=== PATIENT | female | born 1950 | race Caucasian/White ===

== ENCOUNTER 2017-02-27 18:17 | Observation (INO) | payer OTHER, MEDICAID ==
[2017-02-27] MEDS ORDERED: fentaNYL 100 MCG/2 ML INJ IVP ONE (18:45)
[2017-02-27] MEDS ORDERED: NS 1,000 ML IV ONE ×2 (18:45)
[2017-02-27] MEDS ORDERED: ONDANSETRON 4 MG/2 ML VIAL IVP ONE (18:45)
--- NOTE | 2017-02-27 18:47 | EDPHY ---
H & P Time Seen by Provider: 02/27/17 18:32 HPI/ROS: CHIEF COMPLAINT: Abdominal pain HISTORY OF PRESENT ILLNESS: Patient was diagnosed with gallstones when she had her appendectomy for 5 years ago. She has been in [place] and had salmonella on February 03 and has been struggling with diarrhea and 18 lb weight loss since then. She has been having intermittent upper abdominal pain for the last 6 weeks but over the last 24 hours became much worse. Kept her up all night. Today she has associated nausea and pain is worse with trying to eat or drink anything. Radiates to her back. Severe now. REVIEW OF SYSTEMS: Eye: no change in vision ENT: no sore throat Cardiac: no chest pain or syncope Pulmonary: no cough or SOB Abdomen: HPI, intermittent diarrhea since salmonella diagnosis a month ago. Musculoskeletal: no back pain Skin: no rash Neuro: no headache Constitutional: no fever : no urinary symptoms A comprehensive 10 point review of systems is otherwise negative aside from elements mentioned in the history of present illness. PAST MEDICAL HISTORY: Tonsillectomy, appendectomy, x3. Social history: Just returned from [place], nonsmoker no alcohol. General Appearance: Alert and conversant, cooperative. Eyes: No scleral icterus. ENT, Mouth: Dry mucous membranes Respiratory: Normal respiratory effort, breath sounds equal, lungs are clear to auscultation. Cardiovascular: Regular rate and rhythm. Gastrointestinal: Right upper quadrant abdominal tenderness. Neurological: Alert and oriented x3. Normally conversant. Face symmetric, normal movement and sensation in all extremities. Skin: Warm and dry, no rashes. Musculoskeletal: No peripheral edema and no joint swelling. Psychiatric: Not agitated. Emergency Department course/MDM: Fentanyl 100 mcg IV, Zofran 4 mg IV, normal saline 2 L for rehydration for dehydration. 1945: Ultrasound per Gil shows wall thickening, 1.8 cm stone in the gallbladder neck, enlarged common bile duct at 10 mm. Probable cholecystitis. 1950: Results reviewed with the patient, plan for IV Invanz, admission, surgical consultation. Smoking Status: Never smoked Constitutional: Initial Vital Signs Temperature (C) 36.6 C 02/27/17 18:25 Heart Rate 74 02/27/17 18:25 Respiratory Rate 16 02/27/17 18:25 Blood Pressure 159/100 H 02/27/17 18:25 O2 Sat (%) 96 02/27/17 18:25 O2 Delivery Mode Nasal Cannula O2 (L/minute) 2 Allergies/Adverse Reactions: codeine Allergy (Verified 10/04/13 19:38) Penicillins Allergy (Verified 10/04/13 19:38) Home Medications: Medication Instructions Recorded NK [No Known Home Meds] 10/04/13 Medical Decision Making - Diagnostics Imaging Results: Imaging Impressions Abdomen Ultrasound 02/27/17 18:46 Impression: 1. Cholelithiasis with gallbladder sludge and shadowing gallstones up to 1.8 cm , mild gallbladder wall thickening and dilated common bile duct up to 10 mm suggesting acute cholecystitis. 2. No hepatomegaly or ascites. Findings and recommendations discussed with Emergency Department physician, ART RIOS at 19:44 hour, 02/27/2017. Final report concurs with initial preliminary interpretation. Differential Diagnosis: Differential considered including but not limited to pancreatitis, common duct stone, biliary colic, cholecystitis, GERD. Consult/Admit Bed Type: [facility] - Data Points Laboratory Results: Laboratory Results 02/27/17 18:55 02/27/17 18:55 02/27/17 02/27/17 18:55 18:55 WBC 8.33 10^3/uL 10^3/uL (3.80-9.50) RBC 4.44 10^6/uL 10^6/uL (4.18-5.33) Hgb 12.9 g/dL g/dL (12.6-16.3) Hct 38.4 % % (38.0-47.0) MCV 86.5 fL fL (81.5-99.8) MCH 29.1 pg pg (27.9-34.1) MCHC 33.6 g/dL g/dL (32.4-36.7) RDW 13.0 % % (11.5-15.2) Plt Count 328 10^3/uL 10^3/uL (150-400) MPV 9.7 fL fL (8.7-11.7) Neut % (Auto) 43.3 % % (39.3-74.2) Lymph % (Auto) 45.6 % H % (15.0-45.0) Brown % (Auto) 9.4 % % (4.5-13.0) Eos % (Auto) 0.8 % % (0.6-7.6) Baso % (Auto) 0.7 % % (0.3-1.7) Nucleat RBC Rel Count 0.0 % % (0.0-0.2) Absolute Neuts (auto) 3.60 10^3/uL 10^3/uL (1.70-6.50) Absolute Lymphs (auto) 3.80 10^3/uL H 10^3/uL (1.00-3.00) Absolute Monos (auto) 0.78 10^3/uL 10^3/uL (0.30-0.80) Absolute Eos (auto) 0.07 10^3/uL 10^3/uL (0.03-0.40) Absolute Basos (auto) 0.06 10^3/uL 10^3/uL (0.02-0.10) Absolute Nucleated RBC 0.00 10^3/uL 10^3/uL (0-0.01) Immature Gran % 0.2 % % (0.0-1.1) Seg Neutrophils % 45 % % Lymphocytes % 45 % % Monocytes % 8 % % Eosinophils % 1 % % Basophils % 1 % % Immature Gran # 0.02 10^3/uL 10^3/uL (0.00-0.10) Absolute Seg Neuts 3.75 10^/uL 10^/uL (1.70-6.50) Absolute Lymphocytes 3.75 10^3/uL H 10^3/uL (1.00-3.00) Absolute Monocytes 0.67 10^3/uL 10^3/uL (0.30-0.80) Absolute Eosinophils 0.08 10^3/uL 10^3/uL (0.03-0.40) Absolute Basophils 0.08 10^3/uL 10^3/uL (0.02-0.10) RBC/WBC/PLT Morphology NORMAL (NORMAL) Atypical Lymphocytes 1+ H Platelet Estimate ADEQUATE (ADEQ) Sodium 140 mEq/L mEq/L (134-144) Potassium 3.5 mEq/L mEq/L (3.5-5.2) Chloride 106 mEq/L mEq/L (97-110) Carbon Dioxide 22 mEq/l mEq/l (22-31) Anion Gap 12 mEq/L mEq/L (8-16) BUN 8 mg/dL mg/dL (7-23) Creatinine 0.9 mg/dL mg/dL (0.6-1.0) Estimated GFR > 60 Glucose 106 mg/dL H mg/dL (70-100) Calcium 9.7 mg/dL mg/dL (8.5-10.4) Total Bilirubin 0.8 mg/dL mg/dL (0.1-1.4) Conjugated Bilirubin 0.6 mg/dL H mg/dL (0.0-0.5) Unconjugated Bilirubin 0.2 mg/dL mg/dL (0.0-1.1) AST 31 IU/L IU/L (14-46) ALT 30 IU/L IU/L (9-52) Alkaline Phosphatase 42 IU/L IU/L (38-126) Total Protein 6.8 g/dL g/dL (6.3-8.2) Albumin 4.1 g/dL g/dL (3.5-5.0) Lipase 278.0 IU/L IU/L (23-300) Medications Given: Discontinued Medications Fentanyl (Sublimaze) 100 mcg IVP EDNOW ONE Stop: 02/27/17 18:46 Last Admin: 02/27/17 19:07 Dose: 100 mcg Sodium Chloride (Ns) 1,000 mls @ 0 mls/hr IV ONCE ONE PRN Reason: Wide Open Stop: 02/27/17 18:46 Last Admin: 02/27/17 19:08 Dose: 1,000 mls Sodium Chloride (Ns) 1,000 mls @ 0 mls/hr IV ONCE ONE PRN Reason: Wide Open Stop: 02/27/17 18:46 Last Admin: 02/27/17 20:00 Dose: 1,000 mls Ertapenem 1 gm/ Sodium (Chloride) 100 mls @ 200 mls/hr IV EDNOW ONE PRN Reason: Protocol Stop: 02/27/17 20:23 Last Admin: 02/27/17 20:21 Dose: 100 mls Ondansetron HCl (Zofran) 4 mg IVP EDNOW ONE Stop: 02/27/17 18:46 Last Admin: 02/27/17 19:08 Dose: 4 mg Departure - Departure Disposition: [facility] Acute Clinical Impression: Acute cholecystitis Condition: Good
[2017-02-27 19:08] LABS: % IMMATURE GRANULYOCYTES 0.2 % (0.0-1.1); ABSOLUTE IMMATURE GRANULOCYTES 0.02 10^3/uL (0.00-0.10); ADD DIFF? NO; ADD MORPH? NO; ADD SCAN? YES; FRAGMENT RBC FLAG 0 (0-99); HEMATOCRIT 38.4 % (38.0-47.0); HEMOGLOBIN 12.9 g/dL (12.6-16.3); LEFT SHIFT FLG 0 (0-99); LIPEMIA HEMOLYSIS FLAG 80 (0-99); MEAN CELL HEMOGLOBIN 29.1 pg (27.9-34.1); MEAN CELL HEMOGLOBIN CONCENTR. 33.6 g/dL (32.4-36.7); MEAN CELL VOLUME 86.5 fL (81.5-99.8); MEAN PLATELET VOLUME 9.7 fL (8.7-11.7); PLATELET CLUMPS FLAG 0 (0-99); PLATELET COUNT 328 10^3/uL (150-400); RED BLOOD CELL COUNT 4.44 10^6/uL (4.18-5.33)
[2017-02-27 19:12] LABS: ATYPICAL LYMPHOCYTE FLAG 160 (0-99)
[2017-02-27 19:29] LABS: ALANINE AMINOTRANSFERASE 30 IU/L (9-52); ALBUMIN 4.1 g/dL (3.5-5.0); ALKALINE PHOSPHATASE 42 IU/L (38-126); ANION GAP 12 mEq/L (8-16); ASPARTATE AMINOTRANSFERASE 31 IU/L (14-46); BILIRUBIN,TOTAL 0.8 mg/dL (0.1-1.4); BILIRUBIN-CONJUGATED 0.6 mg/dL (0.0-0.5); BILIRUBIN-UNCONJUGATED 0.2 mg/dL (0.0-1.1); CALCIUM 9.7 mg/dL (8.5-10.4); CARBON DIOXIDE 22 mEq/l (22-31); CHLORIDE 106 mEq/L (97-110); CREATININE 0.9 mg/dL (0.6-1.0); GLOMERULAR FILTRATION RATE > 60; GLUCOSE 106 mg/dL (70-100); POTASSIUM 3.5 mEq/L (3.5-5.2); SODIUM 140 mEq/L (134-144); TOTAL PROTEIN 6.8 g/dL (6.3-8.2)
[2017-02-27 19:43] LABS: SCAN POSITIVE
[2017-02-27 19:48] LABS: PLATELET ESTIMATE ADEQUATE (ADEQ)
[2017-02-27] MEDS ORDERED: ERTAPENEM 1 GM in NS 100 ML IV ONE (19:54)
--- NOTE | 2017-02-27 20:51 | GHP ---
[f rep st] PREOP HISTORY AND PHYSICAL DATE OF ADMISSION: 02/27/2017 CHIEF COMPLAINT: Abdominal pain. HISTORY OF PRESENT ILLNESS: This is an otherwise healthy 66-year-old female, who presented to the e mergency department with an approximately 24 hour history of abdominal pain. She states that she donis s had pain for about the last 6 weeks on and off. She does note that she has gallstones, but has be en in [place] since September. She states that this current attack began approximately 24 hours ago o nce she got home. The pain has persisted and was at its worst intensity last evening. In addition to the pain, she does endorse nausea without vomiting. She has had multiple episodes like this in t he past. This 1 appears to be the worst. PAST MEDICAL HISTORY: Includes tonsillitis and appendicitis, as well as 3 C sections. PAST SURGICAL HISTORY: Includes , vertical midline x3, and a laparoscopic appendectomy. SOCIAL HISTORY: Denies tobacco, denies alcohol, spends her aleg[place] in [place]. REVIEW OF SYSTEMS: A full 10-point review was performed and unless explicitly stated above, is othe rwise negative. PHYSICAL EXAMINATION: VITAL SIGNS: Temperature 36.7, blood pressure 140/85, heart rate 84, and she is 97% on 2 L. GENERAL: She is alert and oriented, in no acute distress. CV: She is hemodynamic ally stable. RESPIRATORY: She is clear to auscultation bilaterally. ABDOMEN: Soft, nondistended, tender to palpation in the right upper quadrant with positive Loredo's. EXTREMITIES: Warm and wel l perfused. LAB: Show normal white blood cell count at 8, elevated conjugated bilirubin at 0.6. Remainder of h er liver function enzymes are normal. IMAGING: Includes a right upper quadrant ultrasound, which endorses cholelithiasis with wall thicke renee and pericholecystic fluid, as well as a dilated common bile duct to 1 cm. ASSESSMENT AND PLAN: A 66-year-old female with cholecystitis. After discussing the risks, benefits , and alternatives, we will plan to take her to the operating room. We will maintain n.p.o. status in the meantime, and with plans for operation as soon as time permits. /[id number]/MODL
[2017-02-27] MEDS ORDERED: BUPIVACAINE/EPI 0.25% 30 ML SDV ONE (21:02)
[2017-02-27] MEDS ORDERED: fentaNYL 100 MCG/2 ML INJ ONE ×2 (21:23)
[2017-02-27] MEDS ORDERED: PROPOFOL 200 MG/20 ML VIAL ONE (21:23)
[2017-02-27] MEDS ORDERED: LIDOCAINE 2% 100 MG/5 ML SYR ONE (21:24)
[2017-02-27] MEDS ORDERED: ROCURONIUM 50 MG/5 ML VIAL ONE (21:24)
[2017-02-27] MEDS ORDERED: METOCLOPRAMIDE 10 MG/2 ML VIAL ONE (21:24)
[2017-02-27] MEDS ORDERED: DEXAMETHASONE 4 MG/ML VIAL ONE ×2 (21:24)
[2017-02-27] MEDS ORDERED: MIDAZOLAM 2 MG/2 ML VIAL ONE (21:25)
[2017-02-27] MEDS ORDERED: SUGAMMADEX SODIUM 200 MG/2 ML VIAL IVP ONE (22:26)
[2017-02-27] MEDS ORDERED: HYDROmorphONE/DILAUDID 1 MG/ML SYR IVP PRN (22:48)
[2017-02-27] MEDS ORDERED: ONDANSETRON 4 MG/2 ML VIAL IVP PRN (22:48)
[2017-02-27] MEDS ORDERED: OXYCODONE/APAP 5/325 TAB PO PRN (22:48)
--- NOTE | 2017-02-27 22:48 | POSTOPPROG ---
Post Op Note Date of Operation: 02/27/17 Surgeon: Mathieu Canales Anesthesiologist: Ryder Anesthesia: GET(General Endotracheal) Pre-op Diagnosis: cholecystitis Post-op Diagnosis: same Procedure: lap pilar Findings: many adhesions, thick wall, critical view obtained Inf/Abcess present in the surg proc area at time of surgery?: No EBL: Minimal Specimen(s): gallbag
[2017-02-27] MEDS ORDERED: D5W 1/2 NS W/ 20 KCl/L 1,000 ML IV SCH (23:00)
--- NOTE | 2017-02-28 03:33 | GOP ---
[f rep st] OPERATIVE REPORT DATE OF OPERATION: 02/28/2017 SURGEON: Mathieu Canales MD PROCESS CONTROL TECH: None. ANESTHESIA: General endotracheal ANESTHESIOLOGIST: Dr. Soler PREOPERATIVE DIAGNOSIS: Cholecystitis. POSTOPERATIVE DIAGNOSIS: Cholecystitis. PROCEDURE PERFORMED: Laparoscopic cholecystectomy. FINDINGS: Acutely indurated gallbladder wall with multiple adhesions. Critical view obtained. SPECIMENS: Gallbladder. ESTIMATED BLOOD LOSS: 20 cc. DESCRIPTION OF PROCEDURE: The patient was greeted in the preoperative suite. Once again, risks, be nefits, and alternatives were discussed. Consent was signed. She was then brought back to the oper ative suite, placed on the OR table in a supine position. After all anesthesia machines were on and functioning, [facility] time-out was performed. Antibiotics were given on-call to t he operating room. After successful induction, the patient's abdomen was prepped and draped in typi don sterile fashion. I attempted to achieve insufflation using a stab incision in the left upper qu adrant but was unsuccessful after 1 attempt. I then made an infraumbilical vertical incision throug h which the Veress needle was placed and I achieved insufflation with pneumoperitoneum to 15 mmHg. I subsequently placed 4 trocars, one 12 mm trocar in the infraumbilical place, the other subxiphoid and 2 right upper quadrant, all under direct visualization. Once this was done, I identified the gallbladder, I grasped it and retracted it over the dome of the liver. There were multiple adhesions which were taken down both bluntly and sharply. After this w as done, I grasped the infundibulum, and retracted it laterally. Using a combination of electrocaut margarita and blunt dissection, I identified 2 structures leading toward the gallbladder. Upon dividing t he cystic duct, there was a small arterial branch coming from the cystic artery to it; this was succ essfully dealt with with the hemoclips. The cystic artery was then successfully ligated as well. T he remainder of the gallbladder was taken off the liver bed with electrocautery. It was then remove d via an EndoCatch bag. After this was done, I inspected for hemostasis, which was good. I irrigated the right upper quadra nt with warm normal saline, noting clear effluent in the suction canister. To help with hemostasis in the bed of the liver, I did use Summer hemostatic agent. After this was done, local anesthesia w as instilled on all port sites, which were then removed. I closed my infraumbilical port site with a [id number] 0 Vicryl stitch, noting excellent fascial reapproximation. The skin was then clos ed with running 4-0 Monocryl over which Dermabond was placed. The patient was then extubated in the operative suite and taken to the PACU in satisfactory condition. SURGEON: Mathieu Canales MD DRAINS: None. COUNTS: All counts were reported as correct x2. /[id number]/MODL
--- NOTE | 2017-02-28 07:48 | SOAPPROG ---
SOAP Progress Note Assessment/Plan: Assessment/Plan: - POD#1 s/p lap pilar for cholecystitis - Doing well, pain is well controlled, will transition to PO Anderson today. Reg diet. If all is well will plan for dc today. precautions discussed. 02/28/17 07:47 Subjective: Feeling well Objective: Vital Signs Temp Pulse Resp BP Pulse Ox 36.4 C 64 14 110/76 92 02/28/17 02:33 02/28/17 05:52 02/28/17 02:33 02/28/17 02:33 02/28/17 05:52 02/27/17 02/28/17 03/01/17 05:59 05:59 05:59 Intake Total 2650 Output Total 710 Balance 1940 ICD10 Worksheet Patient Problems: Problems Problem Status Onset Acute cholecystitis Acute
[2017-02-28 08:43] VITALS: PULSE 71
[2017-02-28] MEDS: HYDROCODONE/APAP 5/325 TAB PO PRN ×2 (08:50→13:32)
[2017-02-28 11:19] VITALS: BP 106/73; RESP 16; TEMP 97.9; O2SAT 90
== END 2017-02-28 15:44 | disposition home or self-care (01) ==
LOC: INTOOBSV 20:14 → F3E 23:39
PROVIDERS: ADMIT Surgery; ATTEND Surgery
PROC: 0FT44ZZ Resection of Gallbladder, Percutaneous Endoscopic Approach (ICD-10-PCS; principal; 2017-02-27 21:00)
DX: K80.10 Calculus of gallbladder with chronic cholecystitis without obstruction (principal)
CPT/HCPCS: 47562; 76705; 88304; G0378; J1100; J1335; J2001; J2250; J2405; J2704; J2765; J3010; 96365

== ENCOUNTER 2017-03-03 10:23 | Emergency (ER) | payer OTHER, MEDICAID ==
[2017-03-03 10:39] VITALS: RESP 16; TEMP 99.3
--- NOTE | 2017-03-03 11:01 | CPEKG ---
Heart Rate: 82 RR Interval: 732 P-R Interval: 152 QRSD Interval: 72 QT Interval: 376 QTC Interval: 439 P [place]: 69 QRS [place]: -15 T Wave [place]: 41 EKG Severity - BORDERLINE ECG - EKG Impression: SINUS RHYTHM EKG Impression: PROBABLE LEFT ATRIAL ABNORMALITY EKG Impression: BORDERLINE LEFT AXIS DEVIATION EKG Impression: BORDERLINE T ABNORMALITIES, ANTERIOR LEADS Electronically Signed By: Lorraine Gibbs 03-Mar-2017 15:23:22
--- NOTE | 2017-03-03 11:10 | EDPHY ---
H & P Stated Complaint: nausea,headache, all staring last night. recent gallbladder surgery HPI/ROS: CHIEF COMPLAINT: Base of throat pain HISTORY OF PRESENT ILLNESS: The patient is a 66 y/o female POD #4 s/p lap cholecystectomy complaining of "intense" pain at the base of her throat onset 02:00, less than 10 hours ago. She has generally been recovering well with only mild pain at the surgical site. Today, she woke with pain at the base of her throat that hurts with " every breath." She has not taken anything for the pain and cannot identify any alleviating factors. She complains of associated frontal headache, moderate nausea, and generalized weakness. She reports some of these symptoms are similar to her recent salmonella poisoning (6 weeks ago). her last bowel movement yesterday was normal. She denies fever, vomiting, diarrhea, dyspnea, dysuria, or recent leg swelling. She does note a resolved episode of calf pain directly following her surgery. She has no known cardiac history, nor known blood clots, and is not on hormone replacement therapy. REVIEW OF SYSTEMS: A ten point review of systems was performed and is negative with the exception of the items mentioned in the HPI. Diagnosis of salmonella poisoning mid-January while in [place] with hospitalization. No diarrhea recently. Source: Patient, Family Exam Limitations: No limitations - Personal History Current Tetanus/Diphtheria Vaccine: Yes Current Tetanus Diphtheria and Acellular Pertussis (TDAP): Yes Tetanus Vaccine Date: 9 years - Medical/Surgical History PMH: Previous medical history includes: 1. Appendectomy 2. Salmonella - January, 3. Cholecystectomy - Feb, 2017 4. x 3 5. Vertical midline x 4 6. Tonsillitis Prior medical records include 02/27/17 for abdominal pain. Hx Asthma: No Hx Chronic Respiratory Disease: No Hx Diabetes: No Hx Cardiac Disease: No Hx Renal Disease: No Hx Cirrhosis: No Hx Alcoholism: No Hx HIV/AIDS: No Hx Splenectomy or Spleen Trauma: No Other PMH: appendectomy. cholecystectomy. 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 Friend at bedside. No recent alcohol. Non-smoker. - Physical Exam Exam: General Appearance: Alert. Vital signs reviewed. Blood Pressure 124/95. Afebrile. Eyes: Pupils equal and round, no conjunctival injection, no discharge. Anicteric. ENT, Mouth: Mucous membranes are moist, no oropharyngeal erythema or edema. Neck: No lymphadenopathy, supple. No meningismus. No crepitance. Respiratory: Lungs are clear to auscultation; no wheezes, rales, or rhonchi. Cardiovascular: Regular rate and rhythm; no murmur, rub, or gallop. Gastrointestinal: Abdomen is soft with mild tenderness maxwell-incisionally, incisions intact/clean and dry, no masses or organomegaly, bowel sounds normal. Skin: Warm and dry, no rashes on exposed skin, normal color. Back: Nontender to palpation over the thoracolumbar spine. No CVAT. Extremities: No lower extremity edema, no calf tenderness or swelling. Neurological: Alert and oriented. Moving all four extremities easily and equally. PERRL. EOMI. Tongue midline. Facial expressions symmetric. Psychiatric: Normal affect. Constitutional: Initial Vital Signs Temperature (C) 37.4 C 03/03/17 10:37 Heart Rate 95 03/03/17 10:37 Respiratory Rate 16 03/03/17 10:37 Blood Pressure 124/95 H 03/03/17 10:37 O2 Sat (%) 98 03/03/17 10:37 O2 Delivery Mode Room Air Allergies/Adverse Reactions: codeine Allergy (Verified 10/04/13 19:38) Penicillins Allergy (Verified 10/04/13 19:38) Home Medications: Medication Instructions Recorded oxyCODONE/APAP 5/325 [Percocet 2 tab PO Q4HRS PRN #30 tab 02/28/17 5/325 (*)] Medical Decision Making - Diagnostics EKG Interpretation: Twelve lead EKG interpreted by me in [place]. Imaging: Discussed imaging studies w/ house calls nurse practitioner Radiologist, I viewed and interpreted images myself ED Course/Re-evaluation: This is a 66 y/o female complaining of a 10 hour history of pain at the base of the throat with associated frontal headache, nausea, and generalized weakness. She had a laparoscopic cholecystectomy 4 days ago. Exam is unremarkable. Due to complaint of previous calf pain, the surgery, and the recent trip to [place] I will do a D-dimer in addition to troponin, LFTs, lipase. IV established. 600mg PO ibuprofen and 20mg IV Pepcid administered for symptoms. D-dimer mildly elevated at 1.84. Plan for chest CTA to rule out PE in place of chest x-ray. 1352: CTA shows pneumomediastinum. On re-exam there is no crepitance, trachea midline, no breathing compromise. Her headache is improved. 1400: Consulted with Dr. Esquivel, surgeon. He agrees that the pneumomediastinum is likely a sequelae of her recent laparoscopic surgery. I discussed this with the patient is and she is comfortable returning home with surgical FU later this week.We discussed danger signs that should prompt her to return. Differential Diagnosis: I considered a ddx that includes but is not limited to pneumothorax, PE, pneumomediastinum, pneumonia, gastritis, GERD. I do not think that this presentation is suggestive of ACS. - Data Points Laboratory Results: Laboratory Results 03/03/17 11:30 03/03/17 11:30 Medications Given: Discontinued Medications Famotidine/Sodium Chloride (Pepcid 20 Mg (Premix)) 50 mls @ 200 mls/hr IV ONCE ONE Stop: 03/03/17 11:56 Last Admin: 03/03/17 11:53 Dose: 50 mls Ibuprofen (Motrin) 600 mg PO EDNOW ONE Stop: 03/03/17 12:14 Last Admin: 03/03/17 12:14 Dose: 600 mg Departure - Departure Disposition: Home, Routine, Self-Care Clinical Impression: Pneumomediastinum Condition: Good Instructions: Chest Wall Pain (ED) Additional Instructions: 1. Return to Emergency Department if you experience worsening chest pain, difficulty breathing, or other worsening conditions. 2. Follow up with your surgeon as directed. I recommend follow up later this week. 3. Your chest CT scan shows pneumomediastinum--I think that this is the cause of your pain. Referrals: Ana Maria Lau PA [Primary Care Provider] - As per Instructions Mathieu Canales MD [Medical Doctor] - As per Instructions Report Scribed for: Lorraine Gibbs Report Scribed by: Javon Connell Date of Report: 03/03/17 Time of Report: 11:54 Physician Review and Approval Statement: 03/03/17 11:10 Portions of this note were transcribed by the medical staffing coordinator. I, Dr. Lorraine Gibbs, personally performed the history, physical exam, and medical decision- making; and confirmed the accuracy of the information in the transcribed note.
[2017-03-03] MEDS ORDERED: FAMOTIDINE 20 MG/NACL 50 ML IV ONE (11:42)
[2017-03-03 11:48] LABS: % IMMATURE GRANULYOCYTES 0.5 % (0.0-1.1); ABSOLUTE IMMATURE GRANULOCYTES 0.06 10^3/uL (0.00-0.10); ADD DIFF? NO; ADD MORPH? NO; ADD SCAN? NO; ATYPICAL LYMPHOCYTE FLAG 80 (0-99); FRAGMENT RBC FLAG 0 (0-99); HEMATOCRIT 40.9 % (38.0-47.0); HEMOGLOBIN 13.5 g/dL (12.6-16.3); LEFT SHIFT FLG 0 (0-99); LIPEMIA HEMOLYSIS FLAG 80 (0-99); MEAN CELL HEMOGLOBIN 28.5 pg (27.9-34.1); MEAN CELL VOLUME 86.3 fL (81.5-99.8); MEAN PLATELET VOLUME 9.7 fL (8.7-11.7); PLATELET CLUMPS FLAG 0 (0-99); PLATELET COUNT 285 10^3/uL (150-400); RED BLOOD CELL COUNT 4.74 10^6/uL (4.18-5.33); RED CELL DISTRIBUTION WIDTH 13.2 % (11.5-15.2)
[2017-03-03 12:05] LABS: ALANINE AMINOTRANSFERASE 59 IU/L (9-52); ALBUMIN 3.4 g/dL (3.5-5.0); ALKALINE PHOSPHATASE 53 IU/L (38-126); ANION GAP 10 mEq/L (8-16); ASPARTATE AMINOTRANSFERASE 53 IU/L (14-46); BILIRUBIN,TOTAL 0.7 mg/dL (0.1-1.4); BILIRUBIN-CONJUGATED 0.4 mg/dL (0.0-0.5); BILIRUBIN-UNCONJUGATED 0.3 mg/dL (0.0-1.1); CALCIUM 9.1 mg/dL (8.5-10.4); CARBON DIOXIDE 23 mEq/l (22-31); CHLORIDE 105 mEq/L (97-110); CREATININE 0.8 mg/dL (0.6-1.0); GLOMERULAR FILTRATION RATE > 60; GLUCOSE 101 mg/dL (70-100); SODIUM 138 mEq/L (134-144); TOTAL PROTEIN 6.1 g/dL (6.3-8.2)
[2017-03-03] MEDS ORDERED: IBUPROFEN 600 MG TAB PO ONE ×2 (12:11→12:13)
[2017-03-03 12:16] LABS: TROPONIN I < 0.012 ng/mL (0-0.034)
[2017-03-03] MEDS ORDERED: IOPAMIDOL (ISOVUE 370) 100 ML BTL IV ONE (12:35)
[2017-03-03 14:41] VITALS: BP 121/77; PULSE 68; O2SAT 92
== END 2017-03-03 14:43 | disposition home or self-care (01) ==
DX: J98.2 Interstitial emphysema (principal)
CPT/HCPCS: 71275; 93005; 96374; 99285; Q9967